=== PATIENT | male | born 1970 | race Caucasian/White ===

== ENCOUNTER 2018-01-19 20:36 | Emergency (ER) | payer OTHER ==
[~2018-01-19] VITALS: Ht 177.8 cm; Wt 90.3 kg
[2018-01-19 20:48] VITALS: BP 143/95; Ht 177.8 cm; Wt 90.3 kg
== END 2018-01-19 21:32 | disposition home or self-care (01) ==
LOC: ED 20:36
DX: S16.1XXA Strain of muscle, fascia and tendon at neck level, initial encounter (principal); I10 Essential (primary) hypertension; V43.92XA Unspecified car occupant injured in collision with other type car in traffic accident, initial encounter; Y93.89 Activity, other specified; Y92.89 Other specified places as the place of occurrence of the external cause; Y99.8 Other external cause status

== ENCOUNTER 2018-07-11 22:25 | Emergency (ER) | payer OTHER ==
[~2018-07-11] VITALS: Ht 177.8 cm; Wt 86.6 kg
[2018-07-11 22:37] VITALS: Ht 177.8 cm; Wt 86.6 kg
[2018-07-11 23:30] VITALS: BP 147/93
== END 2018-07-11 23:30 | disposition home or self-care (01) ==
LOC: ED 22:25
DX: S61.002A Unspecified open wound of left thumb without damage to nail, initial encounter (principal); I10 Essential (primary) hypertension; W26.0XXA Contact with knife, initial encounter; Y93.89 Activity, other specified; Y92.89 Other specified places as the place of occurrence of the external cause; Y99.8 Other external cause status